=== PATIENT | male | born 1995 | race Caucasian/White ===

== ENCOUNTER 2018-06-09 12:20 | Inpatient (IN) | payer OTHER ==
--- NOTE | 2018-06-09 12:20 | EDPHY ---
H & P Time Seen by Provider: 06/09/18 12:25 Constitutional: Initial Vital Signs Temperature (C) 36.8 C 06/09/18 12:57 Heart Rate 76 06/09/18 12:57 Respiratory Rate 16 06/09/18 12:57 Blood Pressure 135/65 H 06/09/18 12:57 O2 Sat (%) 97 06/09/18 12:57 O2 Delivery Mode Room Air Allergies/Adverse Reactions: risperidone [From Risperdal] Allergy (Verified 06/09/18 13:11) Home Medications: Medication Instructions Recorded Latuda 06/09/18 Lexapro 06/09/18 Medical Decision Making ED Course/Re-evaluation: CHIEF COMPLAINT: Psychiatric evaluation HISTORY OF PRESENT ILLNESS: The patient is a 23 y/o male arriving with a history of schizophrenia via EMS on an M1 hold for a psychiatric evaluation. The patient was seen by his psychiatrist Dr. Eliseo Dorantes, who noted that the patient has not been taking his medications as prescribed. The patient is normally high functioning when he takes his medications. However, today the patient saw his psychiatrist who noted that the patient was acutely psychotic and mentally unfit. No fever, headache, body aches, lightheadedness, chest pain, heart palpitations, shortness of breath, cough, abdominal pain, urinary or bowel complaints, numbness, paresthesias. REVIEW OF SYSTEMS: A comprehensive 10 system review of systems is otherwise negative aside from elements mentioned in the history of present illness and medical decision making. PHYSICAL EXAM: General Appearance: Alert, well hydrated, appropriate, and non-toxic appearing. Head: Atraumatic without scalp tenderness or obvious injury Eyes: Pupils equal, round, reactive to light and accommodation, EOMI, no trauma , no injection. Ears: Clear bilaterally, no perforation, normal landmarks Nose: Atraumatic, no rhinorrhea, clear. Throat: There is no erythema or exudates, no lesions, normal tonsils, mucus membranes moist. Neck: Supple, 2+ carotid upstroke, nontender, no lymphadenopathy. Respiratory: No retractions, no distress, no wheezes, and no accessory muscle use. Lungs are clear to auscultation bilaterally. Cardiovascular: Regular rate and rhythm, no murmurs, rubs, or gallops. Bilateral carotid, radial, dorsalis pedis, and posterior tibial pulses intact. Good capillary refill all extremities. Gastrointestinal: Abdomen is soft, nontender, non-distended, no masses, no rebound, no guarding, no peritoneal signs. Musculoskeletal: Normal active ROM of all extremities, atraumatic. Neurological: Alert, appropriate, and interactive. The patient has normal DTRs and non-focal cranial nerves, motor, sensory, and cerebellar exam. Skin: No rashes, good turgor, no nodules on palpation. Psych: Speaking illogically, rambling and nonsensical sentences. Feels like people are watching him and is very self critical. Is gravely disabled. Past medical history: Schizophrenia Past surgical history: Denies Family history: Denies Social history: Student at , single, lives in [place] DIFFERENTIAL DIAGNOSIS: The differential diagnosis for the patient's psychosis included but was not limited to schizoaffective disorder, functional and major depression, situational depression, medication side effect, drugs, and alcohol abuse. MEDICAL DECISION MAKING: The patient is a 23 y/o male arriving with a history of schizophrenia via EMS on an M1 hold for a psychiatric evaluation. The patient was seen by his psychiatrist Dr. Eliseo Dorantes, who noted that the patient has not been taking his medications. On exam the patient is speaking illogically, rambling and nonsensical sentences. He also feels like people are watching him and is very self critical. This patient is gravely disabled. Patient is in no acute distress and is hemodynamically stable. We are awaiting psychiatric team's evaluation. Patient has known history of psychiatric disorders and is here for evaluation. 1238: I consulted with the Dr. Eliseo Dorantes, psychologist from [facility], regarding this patient and his psychiatric history. This patient will need to be admitted. We are still awaiting the mental health evaluation. 1300: Patient care turned over to Dr. Amor at shift change. Mental Health eval still pending. (Colin Suazo) I took over care of this patient at 3:00 p.m.. This patient is on an M1 hold for schizophrenia, psychosis and noncompliance with his medications. 4:00 p.m., the patient has been seen and evaluated by [facility]. They are planning to admit him to [address] [place] [address]. 4:35 p.m., the patient has been accepted for transfer to [address] [place] [address] under the care of Dr. Mcfarlane. I have filled out the appropriate transfer paperwork. The patient's remaining emergency department course under my care has been uneventful. The patient was transferred in stable condition. ( Reno Amor) - Data Points Laboratory Results: Laboratory Results 06/09/18 12:38 06/09/18 12:38 06/09/18 06/09/18 06/09/18 14:50 12:38 12:38 WBC 7.61 10^3/uL 10^3/uL (3.80-9.50) RBC 5.67 10^6/uL 10^6/uL (4.40-6.38) Hgb 17.6 g/dL H g/dL (13.7-17.5) Hct 47.9 % % (40.0-51.0) MCV 84.5 fL fL (81.5-99.8) MCH 31.0 pg pg (27.9-34.1) MCHC 36.7 g/dL g/dL (32.4-36.7) RDW 12.6 % % (11.5-15.2) Plt Count 209 10^3/uL 10^3/uL (150-400) MPV 9.9 fL fL (8.7-11.7) Neut % (Auto) 47.4 % % (39.3-74.2) Lymph % (Auto) 44.0 % % (15.0-45.0) Sutton % (Auto) 6.6 % % (4.5-13.0) Eos % (Auto) 1.4 % % (0.6-7.6) Baso % (Auto) 0.5 % % (0.3-1.7) Nucleat RBC Rel Count 0.0 % % (0.0-0.2) Absolute Neuts (auto) 3.60 10^3/uL 10^3/uL (1.70-6.50) Absolute Lymphs (auto) 3.35 10^3/uL H 10^3/uL (1.00-3.00) Absolute Monos (auto) 0.50 10^3/uL 10^3/uL (0.30-0.80) Absolute Eos (auto) 0.11 10^3/uL 10^3/uL (0.03-0.40) Absolute Basos (auto) 0.04 10^3/uL 10^3/uL (0.02-0.10) Absolute Nucleated RBC 0.00 10^3/uL 10^3/uL (0-0.01) Immature Gran % 0.1 % % (0.0-1.1) Immature Gran # 0.01 10^3/uL 10^3/uL (0.00-0.10) Sodium 138 mEq/L mEq/L (135-145) Potassium 3.7 mEq/L mEq/L (3.5-5.2) Chloride 102 mEq/L mEq/L (97-110) Carbon Dioxide 26 mEq/l mEq/l (22-31) Anion Gap 10 mEq/L mEq/L (6-14) BUN 20 mg/dL mg/dL (7-23) Creatinine 1.1 mg/dL mg/dL (0.7-1.3) Estimated GFR > 60 Glucose 105 mg/dL H mg/dL (70-100) Calcium 9.3 mg/dL mg/dL (8.5-10.4) Salicylates < 1.0 mg/dL L mg/dL (2.0-20.0) Urine Opiates Screen NEGATIVE (NEGATIVE) Acetaminophen < 10 mcg/mL L mcg/mL (10-30) Urine Barbiturates NEGATIVE (NEGATIVE) Ur Phencyclidine Scrn NEGATIVE (NEGATIVE) Ur Amphetamine Screen NEGATIVE (NEGATIVE) U Benzodiazepines Scrn NEGATIVE (NEGATIVE) Urine Cocaine Screen NEGATIVE (NEGATIVE) U Marijuana (THC) Screen NEGATIVE (NEGATIVE) Ethyl Alcohol < 10 mg/dL mg/dL (0-10) Medications Given: Discontinued Medications Albuterol (Proventil Neb) 3 ml IH EDNOW ONE Stop: 06/09/18 16:15 Last Admin: 06/09/18 16:23 Dose: 3 ml Departure - Departure Disposition: [facility] IP Clinical Impression: Acute psychosis Schizoaffective disorder Qualifiers: Schizoaffective disorder type: unspecified Qualified Code(s): F25.9 - Schizoaffective disorder, unspecified Condition: Fair Referrals: Patient,NotPresent [Unknown] - As per Instructions Eliseo Dorantes MD [Medical Doctor] - As per Instructions Report Scribed for: Colin Suazo Report Scribed by: Heather Saul Date of Report: 06/09/18 Time of Report: 12:25
[2018-06-09 12:50] LABS: PLATELET COUNT 209 10^3/uL (150-400)
[2018-06-09] MEDS ORDERED: ALBUTEROL 3 ML DEYVIAL IH ONE (16:14)
--- NOTE | 2018-06-09 16:50 | ASMTTLCEVL ---
TLC Evaluation - Basic Information Evaluation Start Date and 06/09/2018 02:00 PM Time Hospital Status Answers: M1 Hold 72-hr M1 Hold Start Date 06/09/2018 11:30 AM and Time Patient statement Notes: I dont believe in taking medications. I feel better without my meds. This week I got a 90% on my test. Narrative Notes: Pt is a 23 year old single, student who was admitted to the [facility] ED on a M1 hold initiated by Psychologist at the CAPS program at [facility]. Per M1 hold it states: Pt presents as psychotic. Pt illogical, talking about self in third person. Gravely disabled based on concerns for judgment and safety. Pt stopped taking antipsychotic medications for 2 weeks and has been unwilling to resume. Mother confirmed pt. has not been taking his medications for at least 2-3 weeks. Per Treva at CAPS program pt. had presented to the clinic today with pressured speech, word salad, paranoid thoughts and reports of auditory hallucinations. Pt. denied HI or SI and did not appear to be responding to internal stimuli. Pt displayed poor insight and judgment and presented as experiencing difficulty focusing. Speech was noted to be rapid. Diagnosis History Notes: Per CAPS clinician pt has been diagnosed with schizophrenia in the past. Per clinicians pt was high functioning while on his medications. Pt was diagnosed with schizophrenia at age 19 while a Senior in High School. Prior suicide attempts Notes: No reported hx of suicide attempts. Prior hospitalizations Notes: Pt was hospitalized at [facility] in [place]. Treatment Responses Notes: Pt per hx has done well and typically is compliant with medications. History of violence Notes: Pt has no hx of prior episodes of violence. Psychiatrist: Dr Carroll Dorantes [phone]. Medications (name, dosage, route, freq uency) Notes: Pt is prescribed Lexapro 10 mg and Latuda 40 mg. Per collateral pt. has not been taking his medications for the past 2 weeks. Allergies/Reaction Notes: No known allergies however mother indicated pt. has environmental allergies along with significant negative drug interactions to the following reported medications including: Risperdal, Invega injection, Vrylar and Ruxulti. Sleep Notes: Pt reports he sleeps about 9 hours a night. Appetite Notes: Pt reported he eats well and denied any appetite changes or weight loss. Medical/Surgical history Notes: No hx of medical problems or surgeries. Substance use history (frequency, intensity, his tory, duration) Notes: Pt has no known history of substance use/abuse except in the past he has used edibles on occasion. Family composition Notes: Pt has 2 older sisters. 1 sister in [place]. Other sister lives in [place]. Pts parents were when he was 6 years old. Pt. does not have regular contact with his father. Need for family Answers: Yes participation in patient's care Family psychiatric/substance abuse history Notes: Pts father and sister have bipolar disorder. Developmental history Notes: Pt has no prior hx of ADD or ADHD even with a recent full psychological work up. Pt also has no hx of developmental delays, LOC or concussions. Pts parents when he was 6 years old which mother described was a very difficult divorce. Mother described pt as challenging and oppositional to raise during his childhood. Abuse concerns Answers: None Marital status/children Notes: Single, no children. Living situation Notes: Pt lives with 2 roommates, not friends in an apt. Sexual history/orientation Notes: Pt is not involved in a relationship. Peer support/family strengths Notes: Mother reported once his mental illness set in late high school years pt. lost all of his friends. Pt does have some acquaintances he interacts with especially playing chess. Education level/history Notes: Pt is a 3rd year student at . He reportedly is an average student who mother said will likely take 6 years to graduate. Pt tested into an elite high school in [place] but his academic performance throughout high school was described as average. Work history Notes: Pt is not employed. He is a 3rd year student. Notes: None Legal Notes: Pt has no hx of legal problems. Hinduism/Spiritual Notes: Pt is nonobservant Caodaism. Leisure Notes: Mother reported pt. enjoys exercising and meditating. He also is an excellent chess player. Collateral Notes: Collateral inform was obtained from pt.'s mother and Clinician from the CAPS program. Pt was placed on a M1 hold by Psychologist at Clinic. Patient's strengths Answers: Athletic (Please select at least TWO strengths): Intelligent Responsible/Dependable Supportive Family TLC Evaluation - Mental Status Exam Appearance: Answers: Appropriate Clean Neat Eye Contact: Answers: Good/Direct Mood: Answers: Euthymic Affect: Answers: Anxious Apprehensive Distracted Expansive Nervous Suspicious Behavior: Answers: Impulsive Resistive to Care Speech: Answers: Rapid Thought Process: Answers: Disorganized Oriented Paranoid Insight: Answers: Poor Judgement: Answers: Poor Manic Signs/Symptoms Answers: Distractibility Impulsivity Pressured Speech Depression Answers: Difficulty Concentrating Signs/Symptoms: Hallucinations: Answers: Auditory Delusions: Answers: Paranoid Ideation Current Stage of Change Answers: Action Pt reported to have Answers: No suicidal/self-injuring ideation/behavior? Pt reported to be making Answers: No suicidal/self-injuring threats? Pt reported to be making Answers: No aggression/assault threats? Pt exhibits inability to Answers: Yes care for self/grave disability? TLC Evaluation - Suicide/Homicide Risk Suicide Risk Factors: Answers: Calm After Agitated Depression Impulsivity Schizophrenia Single Homicide/violence risk Answers: None factors: Current Suicidal Answers: No Ideation? Current Suicidal Ideation Answers: No in the Past 48 Hours? Suicide Internal Answers: Other Notes: Pt denied SI Protective Factors: Suicide External Answers: Other Notes: Pt denied SI Protective Factors: Ranking of patient's Answers: Low suicidal risk: Ranking of patient's Answers: Low homicidal risk: TLC Evaluation - Wrap-up BDI Total Score: Pt refused BSS Total Score: Pt refused AXIS I Diagnosis (include DSM-V and ICD-10 codes), must also be entered in [employer], which is the source of truth. Notes: Unspecified Schizophrenia Spectrum and Other Psychotic Disorder 298.9 (F29) In consultation with [facility] ED physician, Colin Suazo MD and on-call psychiatrist, Seth Fraser MD, both concurred that pt appears to meet 27-65 criteria requiring psychiatric hospitalization as pt appears to be at risk of harm to self/others/gravely disabled due to a mental illness condition. Pt was read the Patient Rights and Responsibilities Statement on 06/09/18 at 15:30 original placed on chart, and was given photocopy of Rights. Pt (signed the Patient Rights. Pt was given the 3N prohibited belongings list while in the ED. Evaluation End Date and 06/08/2018 04:45 PM Time (HH:DYLON): Date Signed: 06/09/2018 04:49 PM Electronically Signed By:Linsey Baeza
--- NOTE | 2018-06-09 16:52 | ASMTTCLDSP ---
TLC Discharge Disposition Disposition: Answers: Admit Disposition Notes: Notes: Admit to [facility] Discharge Concerns/Recommendations: Notes: In consultation with [facility] ED physician, Colin Suazo MD and on-call psychiatrist, Seth Fraser MD, both concurred that pt appears to meet 27-65 criteria requiring psychiatric hospitalization as pt appears to be at risk of harm to self/others/gravely disabled due to a mental illness condition. Pt was read the Patient Rights and Responsibilities Statement on 06/09/18 at 15:30 original placed on chart, and was given photocopy of Rights. Pt (signed the Patient Rights. Pt was given the 3N prohibited belongings list while in the ED. Was patient given the Answers: Yes Inpatient Behavioral Health Prohibited Belongings List while in the ED? For inpatient Dr Seth Fraser admission, the following psychiatrist agreed to accept patient for admission to Behavioral Health ([facility]): Type of Hold: Answers: M1/72-hour Hold Hold initiated by: Answers: Other Notes: [facility] Psychologist Date Signed: 06/09/2018 04:52 PM Electronically Signed By:Linsey Baeza
--- NOTE | 2018-06-09 18:50 | GCON ---
[f rep st] CONSULTATION MEDICINE CONSULTATION DATE OF CONSULTATION: 06/09/2018 This is a medicine consultation at the request of Behavioral Health for evaluation and management pre -psychiatric treatment. HISTORY OF PRESENT ILLNESS: This is a 23-year-old man with a reported history of schizophrenia, who presented to the hospital on M1 hold after being seen by his outpatient psychiatrist where concerns w ere raised that he had not been taking his medications and seem to be decompensated. Per chart revie w, apparently when patient is on his medications, he functions quite well and has been a [employer] student. It should be noted that my evaluation is limited by patient's significant agitation and when I see h im, he refuses to answer any questions whatsoever, and only states that he needs his albuterol inhale r immediately. He denied fevers, cough, or chest pain as well, but did state that his chest felt tig ht and that he needed his albuterol, but otherwise would not answer any further questions. PAST MEDICAL HISTORY: Includes: 1. Schizophrenia. 2. Asthma. PAST SURGICAL HISTORY: This is not available per chart review and unobtainable by the patient. SOCIAL HISTORY: Apparently patient is a [employer] student. No other social history is available per chart review. FAMILY HISTORY: This is unobtainable secondary to patient's mental status. REVIEW OF SYSTEMS: Unobtainable secondary to patient's mental status, other than as per HPI. PHYSICAL EXAM: GENERAL APPEARANCE: This is a well-developed, well-nourished man. He is agitated, a s mentioned. EYES: Anicteric. OROPHARYNX: Moist mucous membranes. CARDIOVASCULAR: Normal with r egular rate and rhythm. No murmurs, rubs, or gallops. PULMONARY: No wheezes, rales, or rhonchi ortiz reciated. EXTREMITIES: No clubbing, cyanosis, or edema. SKIN: Warm, dry. VITAL SIGNS: BP 128/87 , heart rate 98, respiratory rate 16, O2 saturation is 98% on room air, temperature is 36.6. CLINICAL DATA: Reviewed. Labs remarkable only for a glucose of 105. Tox screen is negative. ASSESSMENT/PLAN: This is a 23-year-old schizophrenic man apparently off his medications, presenting with agitation and apparently decompensated schizophrenia. 1. Decompensated schizophrenia in the setting of being off his medications. Patient is being admitt ed to the psychiatric service for medical stabilization. I do not see any indication to defer any tr eatment felt to be appropriate per the psychiatric team. 2. Asthma without evidence of decompensation. Lungs were clear. Oxygen saturations were in the hig h 90s, though patient was very agitated about getting his asthma inhaler, which was provided to him, ultimately, in the emergency department. This should be continued p.r.n. 3. Hyperglycemia, likely stress response in the setting of decompensated schizophrenia as above. I doubt that this represents a new diagnosis of diabetes but should be monitored as an outpatient. Patient is new to my care. Records reviewed. Care plan reviewed with ER physician and TLC. Thank you for this consultation. Medicine will be available peripherally should questions arise pelon be patient's hospitalization. /[id number]/MODL
--- NOTE | 2018-06-09 19:31 | ASMTLCPROG ---
Notes Note: Notes: Boubacar Calderón called for clinicals for a fast cert They Authed 6 days ; Last covered review date June, Auth# [id number] Case will be assigned with devin installation manager I spoke with Sue. Motta Date Signed: 06/09/2018 07:30 PM Electronically Signed By:Charlie Moon
[2018-06-09] MEDS ORDERED: NICOTINE POLACRILEX 2 MG GUM B PRN (20:32)
[2018-06-09] MEDS ORDERED: MAGNESIUM HYDROXIDE 30 ML UDCUP PO PRN (20:32)
[2018-06-09] MEDS ORDERED: LORazepam 0.5 MG TAB PO PRN (20:32)
[2018-06-09] MEDS ORDERED: ACETAMINOPHEN 325 MG TAB PO PRN (20:32)
[2018-06-09] MEDS ORDERED: MAG HYDROX/AL HYDROX/SIMETH 30 ML UDCUP PO PRN (20:32)
[2018-06-09] MEDS ORDERED: OLANZapine DISINTEGR 5 MG TAB PO PRN (20:32)
[2018-06-09] MEDS: ALBUTEROL 60 PUFFS/8 GM MDI IH PRN (22:05)
[2018-06-10] MEDS: ALBUTEROL 60 PUFFS/8 GM MDI IH PRN ×3 (07:58→20:02)
--- NOTE | 2018-06-10 10:12 | ASMTBHMTP ---
Master Treatment Plan Master Treatment Plan Answers: Impaired Reality for: Date: 06/10/2018 Diagnosis on Admission: Unspecified Schizophrenia Sepectrum and Other Psychotic Disorder 298.9 Expected length of stay: 3-5 Days Reason for admission: Notes: Pt is a 23 year old single, student who was admitted to the [facility] ED on a M1 hold initiated by Psychologist at the CAPS program at [facility]. Per M1 hold it states: Pt presents as psychotic. Pt illogical, talking about self in third person. Gravely disabled based on concerns for judgment and safety. Pt stopped taking antipsychotic medications for 2 weeks and has been unwilling to resume. Mother confirmed pt. has not been taking his medications for at least 2-3 weeks. Per Treva at CAPS program pt. had presented to the clinic today with pressured speech, word salad, paranoid thoughts and reports of auditory hallucinations. Pt. denied HI or SI and did not appear to be responding to internal stimuli. Pt displayed poor insight and judgment and presented as experiencing difficulty focusing. Speech was noted to be rapid. Patient's stated presenting problems: Notes: Pt. report speaking with staff at [facility], reporting he "didn't recognize myself in a mirror". Pt. stated he "felt like my a soul and a body that weren't connected". Patient's goals for treatment: Notes: Pt. stated he is not interested in taking medications. Patient's strengths: Notes: Pt. stated he is "musclar, smart, athletic, good at chess, good at writing, good at reading, good at asking for consent, overall a positive spirit. Identify supports outside of hospital: Notes: Pt. stated "[employer], [employer], [employer], [employer], and [employer]". Discharge criteria: Notes: Psychotic symptoms will be reduced or eliminated with return to baseline functioning in affect, thinking and behavior prior to discharge. Initial disposition plan/considerations: Notes: Pt. stated he was "considering taking a mental health break from school". Pt. stated he plans to return to school, but does have concerns about "rumors". Master Treatment Plan Required Signatures Psychiatrist signature: Answers: Psychiatrist: RN on-shift signature: Answers: RN: Patient signature: Answers: Patient: Date Signed: 06/10/2018 10:12 AM Electronically Signed By:Rebeca Figueroa
--- NOTE | 2018-06-10 10:13 | PDMN ---
Medical Necessity Medical [place] [facility] [id number] Schizophrenia Spectrum Disorders, Adult: Inpatient Care, 6 days: 23 yo w/ unspecified schizophrenia spectrum and other psychotic disorder, M1 hold for risk of harm to self/others and gravely disabled.
--- NOTE | 2018-06-10 15:17 | ASMTCMCOM ---
CM Note CM Note Notes: CC met with pt. to complete MTP. Pt. reports having an appointment with his psychiatrist, Dr. Carroll Dorantes, on 06/27/18. Pt. refused to sign an JAKE for [facility] to allow CC to confirm appointment and possibly reschedule it for sooner. Pt. reports having an rn field case manager with [facility], but declined to allow CC to schedule an appointment with them. Pt. declined a handout out for student services, stating he has already spoken with them. Pt. denied alcohol, THC and all other substance use. Pt. approached staff requesting to not be on 15 minute checks. Pt. presents as alert, bit grandiose, somewhat disorganized, lacking insight, and mostly cooperative. Staff report pt. sleeping 6.5 hours and refusing all medication. [facility] has been calling the unit throughout the day, but pt. has declined to sign an JAKE for [facility]. Pt's parents live out of state and may be making arrangements to travel to [place]. Date Signed: 06/10/2018 03:17 PM Electronically Signed By:Rebeca Figueroa
--- NOTE | 2018-06-10 16:58 | BAPA ---
[f rep st] ADMISSION PSYCHIATRIC ASSESSMENT DATE OF SERVICE: 06/10/2018 CHIEF COMPLAINT: "I do not believe in taking medications. I feel better without my medications. This week, I got a 90% of my test." HISTORY OF PRESENT ILLNESS: The patient is a 23-year-old, single student admitted to [facility] on an M1 hold, which was initiated by his therapist at [facility]. According to the M1 hold, the patient is "florid psychosis. The patient illogical, talking about self in 3rd person, gravely disabled based on concerns for judgment of safety. The patient stopped antipsychotic medications 2 weeks ago, unable to resume." The patient's mother confirmed that he has not been taking his medications for at least 2-3 weeks. According to his therapist, the patient presented at [facility] for his scheduled appointment with his therapist and had pressured speech, word salad, paranoid thoughts, and was suspected of having auditory hallucinations. However , his therapist noted that the patient denied any thoughts, plans or intents to hurt himself or anyone else and therapist noted that the patient did not appear to be responding to internal stimuli. However, the therapist thought that the patient displayed "poor insight and judgment and presented as experiencing difficulty focusing." Patient's speech was also noted to be rapid. When this MD met with the patient today on the Inpatient [facility]al [facility] Services Unit, he was pleasant, calm, cooperative, polite. He denied any SI, HI. He denied auditory and visual hallucinations. He also denied paranoid delusions, ideas of reference and bizarre thoughts. The patient did not have pressured speech, racing thoughts, grandiose delusions, elevated or elated mood. He did not endorse increased goal-directed activity or decreased need for sleep. The patient was somewhat confused about why he had been admitted to the hospital. He says that he is aware that the therapist who saw him at [facility], placed him on a mental health hold, but says that he believes that the therapist was concerned about "some dangerous side effects I reported in the past." The patient states that his medications are "not working" and that is why he stopped taking them, but later, he reported that he stopped taking medications due to side effects that he could not tolerate, including "sluggishness" and also "inability to exercise" as well as "inability to drink certain fluids." The patient was not forthcoming with more details. When MD asked the patient to explain what has changed for him recently, he said "the big picture is very complex" and then trailed off and did not complete his thought. He said that he had "a rough week" last week because he was suffering from "jet lag coming back from [place]." The patient's father has been calling all day trying to speak to his son. However, the patient states that he does not want to talk to his dad. He said "I can't hear his voice, just tell him I am okay." MD did talk to the patient about the risks of abruptly discontinuing psychotropic medications. He stated that he had been tapering off his medications, but could not provide any details about how he had conducted the taper. He states that he last saw his outpatient psychiatrist, Eliseo Dorantes about 2 and a half months ago. He said that Dr. Dorantes had to cancel his last appointment due to "a family emergency." The patient states that he wanted to talk to Dr. Dorantes about coming off his medications. Because he was not able to see him, he decided to stop his medications on his own. PAST PSYCHIATRIC HISTORY: The patient has reportedly been diagnosed with schizophrenia. His outpatient provider states that he is high functioning while on his medications. He was diagnosed when he was 19 years old and a senior in high school. He has no prior history of suicide attempts. He has 1 prior psychiatric hospitalization at [facility] in [facility]. According to his family, the patient has done well when taking medications and is typically compliant with his medications. Most recently, the patient has been prescribed Lexapro and Latuda. However, his mother states that in the past, he has also taken Risperdal, Invega, Invega Sustenna and Rexulti. ALLERGIES: Patient states that he has an allergy to Risperdal, but provides no details. CURRENT MEDICATIONS: The patient is currently prescribed Lexapro 10 mg p.o. at bedtime and Latuda 40 mg p.o. at bedtime, but has not taken his medications in 3 weeks. He also uses an albuterol inhaler p.r.n. LABORATORY DATA: White cell count was 7.61, hemoglobin 17.6, hematocrit 47.9, platelet count 209. Sodium 138, potassium 3.7, chloride 102, BUN 20, creatinine 1.1, glucose 105, hemoglobin A1c 4.6, calcium 9.3, triglycerides 105 , cholesterol 140, LDL 81. VLDL 21, HDL 38. Urine drug screen was negative for all drugs of abuse. PAST MEDICAL HISTORY: The patient denies any acute medical issues. He has asthma, uses p.r.n. albuterol inhaler. He denies any acute exacerbation of his asthma. No surgical history. SOCIAL HISTORY: The patient's parents were when he was 6 years old. Both his mother and his father live in [place]. He has 2 older sisters. One lives in [place], 1 lives in [place]. The patient does not have regular contact with his father. The patient lives in [place] with 2 roommates in an apartment. He is in his 3rd year at . He is an average student. Mother says that it will probably take him 6 years to graduate. He reports that he is a nonobservant [employer]. FAMILY HISTORY: Mother reports that both the patient's father and 1 of his sisters have been diagnosed with bipolar disorder and another sister has an anxiety disorder. Mother states that the patient's father is untreated. SUBSTANCE USE HISTORY: The patient denies any substance use, but says that he has used cannabis edibles on occasion. TRAUMA HISTORY: Patient denies history of physical, emotional, or sexual abuse. LEGAL HISTORY: There are no known legal issues. MENTAL STATUS EXAMINATION: This is an average height, well-developed, appropriately groomed man sitting in a chair, wearing jeans and a T-shirt. He is alert and oriented x4. His affect is euthymic. His demeanor is odd. He makes good eye contact. His speech rate is halting at times and volume is normal. His intellectual function appears to be average. He denies feeling sad , helpless, hopeless, worthless, and anxious. He denies any symptoms of psychosis, including denying auditory and visual hallucinations, paranoid delusions, ideas of reference and any bizarre thoughts. There are no signs or symptoms of linnea. He does not have pressured speech, racing thoughts, grandiose delusions or elevated and elated mood. He denies any thoughts, plans or intents to hurt himself or anyone else. His thought process is tangential. His insight and judgment are both impaired as evidenced by the fact that he does not appreciate the severity of symptoms that he has been exhibiting over the last couple of weeks and denies any need to be on psychiatric medications despite having been taking them since the age of 19 for a serious mental illness. IMPRESSION: 1. Psychotic disorder, not otherwise specified. Rule out schizophrenia, by history. 2. Rule out the possibility of bipolar disorder as he has 2 first-degree relatives with bipolar or the possibility of schizoaffective disorder. 3. The patient is experiencing falling grades, difficulty in school, taking longer to complete course work, few close friends, lack of social support, nonadherence to medications. PLAN: 1. Admit to the Inpatient Behavioral Health Services Unit on 3 on an M1 hold. 2. Monitor closely for safety. The patient is not currently exhibiting any signs of unsafe behavior. He is acting appropriately and he denies any thoughts , plans or intents to hurt himself or anyone else. 3. We will continue to monitor and observe the patient. He is not exhibiting any observable symptoms of psychosis. He does not appear to be responding to internal or external stimuli. He denies having paranoid delusions. His insight and judgment do seem to be significantly impaired, but MD questions whether or not the patient is actually gravely disabled. MD would like to collect collateral information either from the patient's roommates or from his family about how he has been behaving over the last couple of weeks and if he has actually done anything that would demonstrate that he is gravely disabled. There is no information provided by the [facility] therapist who saw him on Tuesday that the patient would pose a risk to himself or others. He is denying SI, HI, and does not appear to be overtly psychotic. 4. This MD did talk to the patient about the medications that he has been prescribed by Dr. Dorantes, including Lexapro and Latuda. The patient states that he does not feel like his medications were "working." He also says that he does not like taking medications because of the way they make him feel. He reports feeling sluggish and having an inability to exercise. MD talked to the patient about options for other medications. The patient stated that he did not want to take any psychotropic medications while he was in the hospital. 5. Estimated length of stay is 3-5 days. The patient was not willing to sign a JAKE for [facility] or for [facility], although he did sign an JAKE for his mother but declined to sign an JAKE for his dad. /[id number]/MODL MIYA
[2018-06-10] MEDS: LURASIDONE HCL 20 MG TAB PO SCH (17:12)
[2018-06-10] MEDS: ESCITALOPRAM OXALATE 10 MG TAB PO SCH (20:01)
[2018-06-11] MEDS: ALBUTEROL 60 PUFFS/8 GM MDI IH PRN ×3 (06:36→19:31)
--- NOTE | 2018-06-11 17:51 | SOAPPROG ---
SOAP Progress Note Assessment/Plan: Assessment: 23 yo [employer] student with h/o psychotic disorder (dx with schizophrenia at 19 yo per records), stopped taking psych meds 2-3 weeks ago, has been decompensating. He was placed on [facility] by triage counselor at [facility] and admitted to . Plan: 06/11/18 17:39 1. Patient took Lexapro and Latuda yesterday after initially refusing. He says meds have "wiped" him out and made him sleep most of the day. No other physical complaints or SE's noted. 2. Patient continues to present as delusional and out of touch with reality. 3. MOC says patient does "really well" when he stays on his medications. 4. [facility] Subjective: MD and CC met with patient in his room. Patient was dressed in street clothes lying in bed. He says the meds he took yesterday made him really tired. His MOC called and left message that patient usually has SE's when he first starts meds , including HOYOS and nausea, but these "go away" in a few days. Patient denies any of these SE's today. Patient made several strange comments to staff during group therapy. In one group, he said, "I may look really white, but I know I'm from [place]." Objective: Vital Signs Temp Pulse Resp BP Pulse Ox 36.4 C 75 16 125/61 H 96 06/11/18 06:00 06/11/18 06:00 06/11/18 06:00 06/11/18 06:00 06/11/18 06:00 MSE: Affect: Euthymic Mood: "OK" TP: Disorganized, illogical TC: Denies any SI/HI, still paranoid and delusional, impaired reality testing Insight/Judgment : Impaired - Time Spent With Patient Time Spent With Patient: 15" - Pending Discharge Pending Discharge Within 24 Hours: No Pending Discharge Within 48 Hours: No ICD10 Worksheet Patient Problems: Problems Problem Status Onset Acute psychosis Acute Schizoaffective disorder Acute
[2018-06-11] MEDS: LURASIDONE HCL 20 MG TAB PO SCH (19:31)
[2018-06-11] MEDS: ESCITALOPRAM OXALATE 10 MG TAB PO SCH (21:42)
[2018-06-12 06:37] VITALS: BP 100/54
--- NOTE | 2018-06-12 10:57 | BDS ---
[f rep st] BEHAVIORAL HEALTH DISCHARGE SUMMARY REASON FOR ADMISSION: From the ED note dated 06/09/18, patient with history of schizophrenia and arrived by EMS on an M1 hold for psychiatric evaluation. Patient was seen by his outpatient psychiatrist, Dr. Bazan, and noted the patient was not taking his medications as prescribed. Patient was acutely psychotic. Patient was admitted involuntarily on an M1 hold due to being gravely disabled due to mental illness. Patient was admitted for safety, crisis stabilization, and medication management. ADMITTING DIAGNOSIS: Unspecified psychosis. ADMISSION PHYSICAL EXAM: Patient was seen on 06/09/2018 for history and physical consultation for medical clearance for inpatient psychiatric hospitalization and treatment. Patient was medically cleared for inpatient psychiatric hospitalization and treatment. For further details, please refer to consultation document dated 06/09/18. ADMISSION LABS: 1. CBC within normal limits except hemoglobin was elevated at 17.6, and absolute lymphocytes were elevated at 3.35. 2. BMP within normal limits except glucose was elevated at 105. 3. Hemoglobin A1c within normal limits at 4.6. 4. Lipid panel within normal limits except HDL cholesterol was low at 38. 5. Toxicology screen was non-negative for all substances that were screen and negative for ethyl alcohol. MAJOR PROCEDURES OR TESTS: None. HOSPITAL COURSE: The most prominent symptoms and behaviors while the patient was here were moderate anxiety. At time of admission, patient was illogical, was deemed gravely disabled due to poor judgment and poor insight. Treatment modalities utilized were milieu and group therapy. Lexapro 10 mg p.o. at bedtime was started to target mood symptoms, was tolerated with no report of side effects and with good response. Latuda 20 mg p.o. daily at 6 p.m. was started to target psychosis symptoms, was tolerated with no report of side effects and with good response. Patient has improved considerably with no signs of psychiatric symptoms and no psychiatric symptoms expressed. Patient reports he has improved since admission, states to be in stable condition, feels safe to discharge, and he contracts for safety. Patients response to treatment was good. There were no adverse or unexpected results of treatment. The patient was safe throughout stay, active in treatment, engaged in groups, and was appropriate with staff. Patient met with treatment team prior to discharge to assess readiness to discharge and review discharge plan. The treatment team consensus is the patient in stable condition, has a safe discharge plan, and is ready to discharge today. CONDITION AT DISCHARGE: Patient is in stable condition and is no longer a danger to self or others, and is not gravely disabled due to mental illness. Patient is no longer in need of inpatient level of care, and can be safely and effectively treated within the community. The patients level of risk at time of discharge is low. MSE: The patient is casually dressed and with good hygiene , and looks stated age. Patient is sitting, posture is upright, and position is relaxed. Patient appears awake, alert, and responds appropriately and reasonably during interview. Patient is engaged, relates well to interviewer, and emotional facial expression is appropriate to situation and changes appropriately with topic. Patient is cooperative, makes comfortable eye contact , and movements are voluntary, deliberate, coordinated, and smooth and even with no inappropriate movements. Patient makes laryngeal sounds effortlessly and shares conversation appropriately; pace of conversation is appropriate, and stream of talking is fluent; articulation is clear and understandable; word choice is effortless and appropriate for education level; completes sentences, occasionally pausing to think; rate and volume are appropriate for interview and setting. Patient reports mood as euthymic. Patients affect is stable with full variable range, congruent with mood, and appropriate to speech and circumstances. Patient has linear and logical thinking, with no loose associations, tangential thought, thought blocking, concrete thinking, or any other signs of formal thought disorder. Patient denies suicidal and homicidal ideation, and denies hallucinations and delusions. Patient appears to be a reliable historian with sound judgement and good insight into current condition. Patient has no apparent dysfunction in recent or remote memory noted , and no evidence of gross cognitive dysfunction noted at any point during the interview. DISCHARGE DIAGNOSIS: Unspecified psychosis. CURRENT MEDICATIONS: After reviewing options, risks and benefits with the patient, patient agrees to continue: 1. Lexapro 10 mg p.o. daily. 2. Latuda 40 mg p.o. daily with food. Patient requests prescriptions for these medications at time of discharge. Prescriptions for 30 days for each medication are provided. The prescriptions are reviewed with the patient and the patient's mother at time of discharge to ensure accuracy and patient understanding. DISPOSITION: Patient left hospital independently and voluntarily and plans to return to classes at . FOLLOWUP: building services coordinator reports the appropriate outpatient follow-up services have been established and outpatient appointments have been scheduled. The patient received written instructions with times and dates of outpatient follow-up appointments. The following follow-up recommendations were provided to the patient at discharge: Continue psychotropic medications as prescribed and attend appointments as scheduled. Report any side effects to a psychiatric outpatient provider, a primary care provider, or other health date night caregiver. Address any questions or problems concerning the psychotropic medications with a psychiatric outpatient provider, a primary care provider, or other health date night caregiver. Contact [facility] or [facility], or go to the nearest emergency room, if you are ever a danger to yourself/others, or unable to care for yourself. As soon as possible, establish a routine medication management treatment with a psychiatric provider, establish routine therapy appointments, and follow-up with a primary care provider. LEGAL COURSE: Patient was admitted on an M1 hold for involuntary inpatient psychiatric hospitalization and treatment. Patient discharged today independently and voluntarily. ATTITUDE AT TIME OF DISCHARGE: The patients attitude was positive at time of discharge, and patient reports looking forward to discharging today. The patient reports he feels safe to discharge, is no longer a danger to himself or others, is in stable condition, and contracts for safety. Patient states he will continue medications as prescribed, and establish medication management treatment with an outpatient provider after discharge. Patient reports he understands the information that has been provided to him, and he understands, accepts, and agrees to psychotropic medications. Patient describes internal protective factors as the coping skills he has learned while hospitalized here, and he plans to continue to practice these coping skills after discharge. LABS AND RADIOLOGY STUDIES: There were no pending labs or studies at time of discharge. ADVANCE DIRECTIVES: There were no advance directives on file, and patient was full code during this hospitalization. The following psychotropic medication treatment informed consent and recommendations were provided to the patient at time of discharge. Patient reports he understands, accepts, and agrees to the information that has been provided. PSYCHOTROPIC MEDICATION TREATMENT INFORMED CONSENT and RECOMMENDATIONS: Review nature of condition, diagnosis, and prognosis. Review nature and purpose of psychotropic medication treatment. Review type of psychotropic medications being prescribed. Review risk and benefits of psychotropic medication treatment. Review probable length of time will need to take medications. Review risk and benefits of not undergoing psychotropic medication treatment. Review alternative treatments to psychotropic medications. Review psychotropic medications contraindications, side effects, and importance of reporting any side effects to a psychiatric provider, primary care provider, or other health date night caregiver. Review importance of asking a psychiatric provider or primary care provider any questions or problems concerning the psychotropic medications. Review safety plan and the importance to contact [facility] or [facility] , or go to the nearest emergency room, if ever a danger to yourself/others, or unable to care for yourself. Recommend upon discharge to establish routine medication management treatment with a psychiatric provider, establish routine therapy appointments, and follow-up with a primary care provider. Verify patient understands, accepts, and agrees to the information that has been provided. /[id number]/MODL MTDD
--- NOTE | 2018-06-12 12:32 | ASMTCMCOM ---
CM Note CM Note Notes: The patient participated in clinical treatment team rounds. He was engaged and appropriate; speech was linear and organized. The patient reported that prior to admission he felt like he was a consciousness without a body, after treatment he reported feeling integrated and grounded in his body again. The patient agreed to adhere to medication outpatient; he ceased prior to admission due to high cost. His fx has offered to financially support medication tx. CC confirmed a follow up appointment with [facility] for June 13 @ 10:00. Date Signed: 06/12/2018 11:38 AM Electronically Signed By:Evelyn Tapia
== END 2018-06-12 11:55 | disposition home or self-care (01) | DRG 885 ==
LOC: BBEH 18:40
PROVIDERS: ADMIT Psychiatry & Neurology Psychiatry; ATTEND Psychiatry & Neurology Psychiatry
DX: F20.9 Schizophrenia, unspecified (principal); T43.506A Underdosing of unspecified antipsychotics and neuroleptics, initial encounter; J45.909 Unspecified asthma, uncomplicated
CPT/HCPCS: 80305; G0480; J7613

== ENCOUNTER 2018-07-17 12:34 | Emergency (ER) | payer OTHER ==
[2018-07-17 12:41] VITALS: BP 117/71
--- NOTE | 2018-07-17 13:14 | EDPHY ---
H & P Time Seen by Provider: 07/17/18 13:00 HPI/ROS: CHIEF COMPLAINT: Vomiting, cough HISTORY OF PRESENT ILLNESS: Patient is a 23-year-old male with a history of schizophrenia who presents emergency department with "the flu."The patient states that 3 days ago he developed a cough. It is nonproductive. His cough is slowly improved. However, today he developed an single episode of vomiting and diarrhea. Both were nonbloody. Patient describes mild body aches. He does not reported fever. No abdominal pain. No chest pain. No dysuria frequency. The patient started it is medications over year ago and has been compliant. REVIEW OF SYSTEMS: 10 systems were reveiwed and are negative with the exception of the elements mentioned in the history of present illness. Past Medical/Surgical History: Includes schizophrenia, attention deficit hyperactivity disorder Social history: The patient does not smoke cigarettes. He recently quit. He takes neck arrest. He denies THC use. Smoking Status: Light smoker Physical Exam: Vitals noted GENERAL: Well-appearing, in no acute distress, alert. HEENT: Eyes normal to inspection, normal pharynx, no signs of dehydration. NECK: Normal, supple. RESPIRATORY: Clear to auscultation bilaterally, no rales, rhonchi or wheezing. CVS: Regular rate and rhythm, no rubs, murmurs, or gallops. ABDOMEN: Soft, nontender, nondistended, no organomegaly. BACK: Normal to inspection, no CVA tenderness. SKIN: Normal color, no rash, warm, dry. No pallor. EXTREMITIES: No pedal edema, no calf tenderness, no Homans sign or cords, no joint swelling. NEURO/PSYCH: Alert and oriented, normal mood and affect, normal motor sensory exam. Constitutional: Initial Vital Signs Temperature (C) 36.9 C 07/17/18 12:39 Heart Rate 92 07/17/18 12:39 Respiratory Rate 16 07/17/18 12:39 Blood Pressure 117/71 07/17/18 12:39 O2 Sat (%) 95 07/17/18 12:39 O2 Delivery Mode Room Air Allergies/Adverse Reactions: cariprazine [From Vraylar] Allergy (Verified 07/17/18 12:39) risperidone [From Risperdal] Allergy (Verified 07/17/18 12:39) Home Medications: Medication Instructions Recorded Albuterol [Proventil Inhaler HFA 2 puffs IH Q4H PRN 06/09/18 (*)] Escitalopram Oxalate [Lexapro] 10 mg PO DAILY 30 Days #30 tab 06/12/18 Lurasidone HCl [Latuda] 40 mg PO DAILY 30 Days #30 tablet 06/12/18 Ondansetron Odt [Zofran Odt 4 mg 4 mg PO Q4PRN PRN #7 tab 07/17/18 (*)] Medical Decision Making ED Course/Re-evaluation: In the emergency department discussed possible etiologies with the patient. I answered all his questions. Patient appears well on exam. At this time I do not feel the patient needs testing. I doubt pneumonia. I do not feel he needs chest x-ray. I do not feel a flu swab would be helpful as the symptoms started 3 days ago. I do not feel the patient needs antibiotics. He does not appear septic or toxic. Differential Diagnosis: My differential includes but is not limited to viral illness, gastroenteritis, bronchitis, pneumonia, influenza, bacteremia, sepsis Departure - Departure Disposition: Home, Routine, Self-Care Clinical Impression: Viral syndrome Condition: Fair Instructions: Acute Nausea and Vomiting (ED) Additional Instructions: Return with increasing cough, shortness of breath, repeated vomiting or any other concerns. Referrals: Mariel Lynn DO [Doctor of Osteopathy] - 5-7 days, call for appt. Prescriptions: Ondansetron Odt [Zofran Odt 4 mg (*)] 4 mg PO Q4PRN PRN #7 tab PRN Reason: For Nausea & Vomiting
== END 2018-07-17 13:34 | disposition home or self-care (01) ==
DX: B34.9 Viral infection, unspecified (principal); R11.0 Nausea; R19.7 Diarrhea, unspecified; F20.9 Schizophrenia, unspecified; F90.9 Attention-deficit hyperactivity disorder, unspecified type; F17.200 Nicotine dependence, unspecified, uncomplicated

== ENCOUNTER 2018-08-26 04:36 | Emergency (ER) | payer OTHER | END 2018-08-26 07:40 | disposition home or self-care (01) ==